=== PATIENT | male | born 1975 | race Caucasian/White ===

== ENCOUNTER 2019-03-04 08:54 | Inpatient (IN) ==
[2019-03-04 09:39] LABS: Amphetamine Screen,Urine Negative ng/mL (Cutoff=1000); Barbiturate Screen,Urine Negative ng/mL (Cutoff=200); Benzodiazepines Screen,Urine Negative ng/mL (Cutoff=200); Cannabinoid Screen,Urine Negative ng/mL (Cutoff = 50); Cocaine Screen,Urine Negative ng/mL (Cutoff= 300); Opiate Screen,Urine Negative ng/mL (Cutoff=300); Phencyclidine Screen,Urine Negative ng/mL (Cutoff=25)
[2019-03-04 10:03] LABS: Basophils % 0.6 %; Eosinophils # 0.1 K/mcL (0.0-0.6); Eosinophils % 1.1 %; Hematocrit 45.3 % (37.5-50.1); Hemoglobin 15.9 g/dL (12.9-16.9); Immature Granulocytes % 0.3 % (0-4); Lymphocytes # 1.4 K/mcL (0.6-4.6); Lymphocytes % 22.1 %; Mean Corpuscular HGB Conc 35.1 g/dL (31.6-35.5); Mean Corpuscular Hemoglobin 29.3 pg (28.0-33.3); Mean Corpuscular Volume 83.4 fL (83.0-100.0); Mean Platelet Volume 9.7 fL (9.4-12.4); Monocytes # 0.4 K/mcL (0.0-1.3); Monocytes % 6.5 %; Neutrophils # 4.4 K/mcL (1.6-8.9); Platelet Count 290 K/mcL (140-400); Red Blood Count 5.43 M/mcL (4.19-5.50); Red Cell Distribution Width 12.5 % (11.5-14.5); Segmented Neutrophils % 69.4 %; White Blood Count 6.3 K/mcL (4.3-11.1)
[2019-03-04] MEDS ORDERED: Mag Hydrox/Al Hydrox/Simeth 30 ML UDC PO ONE (10:16)
[2019-03-04 10:30] LABS: Acetaminophen < 10 mcg/mL (10-20); BUN/Creatinine Ratio 10 (6-26); Blood Urea Nitrogen 10 mg/dL (6-20); Calcium 9.7 mg/dL (8.6-10.3); Carbon Dioxide 25 mEq/L (23-29); Chloride 103 mEq/L (98-107); Ethanol < 10 mg/dL (Less than 10); Glucose 100 mg/dL (70-105); Osmolality,Calculated 289 (280-300); Potassium 3.4 mEq/L (3.5-5.1); Salicylate < 2.5 mg/dL (15.0-30.0); Sodium 140 mEq/L (136-145); eGFR For African Americans > 60 (> 60); eGFR For Non-African Americans > 60 (> 60)
[2019-03-04] MEDS ORDERED: Acetaminophen 325 MG TABLET PO PRN (14:23)
[2019-03-04] MEDS ORDERED: MOM Conc 10 ML UD.LIQ PO PRN (14:23)
[2019-03-04] MEDS ORDERED: *HR* LORazepam 1 MG TABLET PO PRN (14:23)
[2019-03-04] MEDS ORDERED: Mag Hydrox/Al Hydrox/Simeth 30 ML UDC PO PRN (14:23)
[2019-03-04] MEDS ORDERED: Haloperidol Lactate 5 MG/ML VIAL IM PRN (14:23)
[2019-03-04] MEDS ORDERED: *HR* LORazepam 2 MG/ML VIAL IM PRN (14:23)
[2019-03-04] MEDS ORDERED: Melatonin 3 MG TABLET PO PRN (16:05)
[2019-03-04] MEDS ORDERED: clonazePAM 0.5 MG TABLET PO STA (16:13)
[2019-03-04] MEDS: hydrOXYzine pamoate 25 MG CAPSULE PO PRN ×2 (18:02→21:30)
[2019-03-04] MEDS: clonazePAM 0.5 MG TABLET PO SCH (21:30)
[2019-03-04] MEDS: (Doxepin Hcl 10 MG) PO SCH (21:31)
[2019-03-05] MEDS: clonazePAM 0.5 MG TABLET PO SCH (07:56)
[2019-03-05] MEDS ORDERED: Metoprolol XL (24 HR) Succ 25 MG TAB.ER.24H PO SCH (09:00)
[2019-03-05] MEDS: Mirtazapine 15 MG TABLET PO SCH (20:57)
[2019-03-05] MEDS: (Doxepin Hcl 10 MG) PO SCH (20:58)
[2019-03-05] MEDS: clonazePAM 1 MG TABLET PO PRN (20:59)
[2019-03-06] MEDS: clonazePAM 1 MG TABLET PO PRN ×2 (08:34→21:48)
[2019-03-06] MEDS: Metoprolol XL (24 HR) Succ 50 MG TAB.ER.24H PO SCH (08:34)
[2019-03-06] MEDS: Mirtazapine 15 MG TABLET PO SCH (21:48)
[2019-03-07] MEDS: Metoprolol XL (24 HR) Succ 50 MG TAB.ER.24H PO SCH (08:37)
[2019-03-07] MEDS: clonazePAM 1 MG TABLET PO PRN (08:39)
[2019-03-07 08:43] VITALS: BP 136/94
== END 2019-03-07 10:35 | disposition home or self-care (01) | DRG 885 ==
LOC: EMEROOARM 08:54 → 1ANU 14:19 → INTOOBSV 14:19 → 1ANU 15:00
PROVIDERS: ADMIT Psychiatry & Neurology Psychiatry; ATTEND Psychiatry & Neurology Psychiatry

== ENCOUNTER 2020-10-14 10:50 | Inpatient (IN) ==
[2020-10-14 11:34] LABS: Basophils # 0.1 K/mcL (0.0-0.2); Basophils % 0.9 %; Eosinophils # 0.1 K/mcL (0.0-0.6); Hematocrit 43.1 % (37.5-50.1); Immature Granulocytes % 0.2 % (0-4); Lymphocytes # 1.7 K/mcL (0.6-4.6); Lymphocytes % 29.7 %; Mean Corpuscular HGB Conc 32.5 g/dL (31.6-35.5); Mean Corpuscular Hemoglobin 27.8 pg (28.0-33.3); Mean Corpuscular Volume 85.5 fL (83.0-100.0); Mean Platelet Volume 9.7 fL (9.4-12.4); Monocytes # 0.4 K/mcL (0.0-1.3); Monocytes % 6.9 %; Neutrophils # 3.6 K/mcL (1.6-8.9); Platelet Count 274 K/mcL (140-400); Red Blood Count 5.04 M/mcL (4.19-5.50); Segmented Neutrophils % 61.3 %; White Blood Count 5.8 K/mcL (4.3-11.1)
[2020-10-14 11:43] LABS: Bilirubin,Urine Negative (Negative); Blood,Urine Negative (Negative); Clarity,Urine Clear (Clear); Color,Urine Light-Yellow (Yellow); Glucose,Urine (UA) Normal (Normal); Ketones,Urine Negative (Negative); Leukocyte Esterase,Urine Negative (Negative); Nitrite,Urine Negative (Negative); PH,Urine 5.5 pH Units (5.0-8.0); Protein,Urine Negative (Neg-Trace); Urobilinogen,Urine Normal (Normal)
[2020-10-14 11:56] LABS: Amphetamine Screen,Urine Negative ng/mL (Cutoff=1000); Barbiturate Screen,Urine Negative ng/mL (Cutoff=200); Benzodiazepines Screen,Urine Negative ng/mL (Cutoff=200); Cannabinoid Screen,Urine Negative ng/mL (Cutoff = 50); Cocaine Screen,Urine Negative ng/mL (Cutoff= 300); Opiate Screen,Urine Negative ng/mL (Cutoff=300); Phencyclidine Screen,Urine Negative ng/mL (Cutoff=25)
[2020-10-14 12:04] LABS: Acetaminophen < 10 mcg/mL (10-20); Alanine Aminotransferase 14 Units/L (7-52); Albumin 4.6 g/dL (3.5-5.7); Albumin/Globulin Ratio 1.7 (1.1-2.2); Alkaline Phosphatase 75 Units/L (34-104); Aspartate Amino Transferase 16 Units/L (13-39); BUN/Creatinine Ratio 13 (6-26); Bilirubin,Direct 0.1 mg/dL (0.0-0.2); Bilirubin,Indirect 0.3 mg/dL (0.0-1.0); Bilirubin,Total 0.4 mg/dL (0.3-1.0); Blood Urea Nitrogen 13 mg/dL (6-20); Calcium 9.4 mg/dL (8.6-10.3); Carbon Dioxide 25 mEq/L (23-29); Chloride 106 mEq/L (98-107); Ethanol < 10 mg/dL (Less than 10); Globulin 2.7 g/dL (2.4-3.5); Glucose 100 mg/dL (70-105); Osmolality,Calculated 290 (280-300); Potassium 3.5 mEq/L (3.5-5.1); Salicylate < 2.5 mg/dL (15.0-30.0); Sodium 140 mEq/L (136-145); Total Protein 7.3 g/dL (6.4-8.9); eGFR For African Americans > 60 (> 60); eGFR For Non-African Americans > 60 (> 60)
[2020-10-14 12:07] LABS: Thyroid Stimulating Hormone 3.139 mcIU/mL (0.340-5.600)
[2020-10-14 12:31] LABS: Adenovirus Not Detected (Not Detect); Bordetella Pertussis Not Detected (Not Detect); Chlamydophila pneumoniae Not Detected (Not Detect); Coronavirus 229E Not Detected (Not Detect); Coronavirus HKU1 Not Detected (Not Detect); Coronavirus NL63 Not Detected (Not Detect); Coronavirus OC43 Not Detected (Not Detect); Human Metapneumovirus Not Detected (Not Detect); Human Rhinovirus/Enterovirus DETECTED (Not Detect); Influenza A Subtype 2009 H1 Not Detected (Not Detect); Influenza B Not Detected (Not Detect); Mycoplasma pneumoniae Not Detected (Not Detect); Parainfluenza Virus 1 Not Detected (Not Detect); Parainfluenza Virus 2 Not Detected (Not Detect); Parainfluenza Virus 3 Not Detected (Not Detect); Parainfluenza Virus 4 Not Detected (Not Detect); Respiratory Syncytial Virus Not Detected (Not Detect); SARS-CoV-2 Not Detected (Not Detect)
[2020-10-14] MEDS ORDERED: Nicotine 2 MG GUM BC PRN (14:09)
[2020-10-14] MEDS ORDERED: *HR* LORazepam 1 MG TABLET PO PRN (14:09)
[2020-10-14] MEDS ORDERED: *HR* LORazepam 2 MG/ML VIAL IM PRN (14:09)
[2020-10-14] MEDS ORDERED: Haloperidol Lactate 5 MG/ML VIAL IM PRN (14:09)
[2020-10-14] MEDS ORDERED: Mag Hydrox/Al Hydrox/Simeth 30 ML UDC PO PRN (14:09)
[2020-10-14] MEDS ORDERED: MOM Conc 10 ML UD.LIQ PO PRN (14:09)
[2020-10-14] MEDS ORDERED: Acetaminophen 325 MG TABLET PO PRN (14:09)
[2020-10-14] MEDS ORDERED: haloperidoL 5 MG TABLET PO PRN (14:09)
[2020-10-14] MEDS ORDERED: traZODone 50 MG TABLET PO PRN (14:09)
[2020-10-14] MEDS: clonazePAM 1 MG TABLET PO PRN (19:39)
[2020-10-14] MEDS: hydrOXYzine pamoate 25 MG CAPSULE PO PRN (20:40)
[2020-10-14] MEDS ORDERED: Mirtazapine 15 MG TABLET PO SCH (21:00)
[2020-10-15] MEDS: Metoprolol XL (24 HR) Succ 50 MG TAB.ER.24H PO SCH (08:40)
[2020-10-15] MEDS: clonazePAM 1 MG TABLET PO PRN (12:26)
[2020-10-15] MEDS: hydrOXYzine pamoate 25 MG CAPSULE PO PRN (20:53)
[2020-10-15] MEDS: Mirtazapine 15 MG TABLET PO SCH (20:53)
[2020-10-16] MEDS: clonazePAM 1 MG TABLET PO PRN ×2 (08:34→21:02)
[2020-10-16] MEDS: Metoprolol XL (24 HR) Succ 50 MG TAB.ER.24H PO SCH (08:34)
[2020-10-16] MEDS: Mirtazapine 15 MG TABLET PO SCH (21:02)
[2020-10-17] MEDS: Metoprolol XL (24 HR) Succ 50 MG TAB.ER.24H PO SCH (08:59)
[2020-10-17 09:36] VITALS: BP 121/83
== END 2020-10-17 12:20 | disposition home or self-care (01) | DRG 880 ==
LOC: EMEROOARM 10:50 → 1ANU 14:26
PROVIDERS: ADMIT Psychiatry & Neurology Psychiatry; ATTEND Psychiatry & Neurology Psychiatry